=== PATIENT | male | born 1945 | race Caucasian/White ===

== ENCOUNTER 2017-08-23 11:08 | Inpatient (IN) | payer MEDICARE, MEDICAID ==
--- NOTE | 2017-08-23 11:19 | ED Physician Chart ---
ED Chief Complaint/HPI - Patient Information Date Seen:: 08/23/17 Time Seen:: 11:05 Chief Complaint:: Epistaxis History of Present Illness:: onset x 4 days of intermittent epistaxis which resolved upon ER arrival; no report of trauma, H/As, neck pain, S/T, cough, C/P, SOB, Abd/Flank Pain, A/N/V/D /C, fever, chills, or urinary s/s Historian:: Patient, EMS Review:: Nurse's Note Reviewed, EMS run form Reviewed ED Review of Systems - Review of Systems General/Constitutional: No fever, No chills, No weight loss, No weakness, No diaphoresis, No edema, No loss of appetite Skin: No skin lesions, No rash, No bruising Head: No headache, No light-headedness Eyes: No loss of vision, No pain, No diplopia ENT: No earache, No nasal drainage, No sore throat, No tinnitus, Other ( epistaxis) Neck: No neck pain, No swelling, No thyromegaly, No stiffness, No mass noted Cardio Vascular: No chest pain, No palpitations, No PND, No orthopnea, No edema Pulmonary: SOB, Cough, No sputum, Wheezing GI: No nausea, No vomiting, No diarrhea, No pain, No melena, No hematochezia, No constipation, No hematemesis G/U: No dysuria, No frequency, No hematuria Musculoskeletal: No bone or joint pain, No back pain, No muscle pain Endocrine: Polyuria, Polydipsia Psychiatric: No prior psych history, No depression, No anxiety, No suicidal ideation, No homicidal ideation, No auditory hallucination, No visual hallucination Hematopoietic: No bruising, No lymphadenopathy Allergic/Immuno: No urticaria, No angioedema Neurological: No syncope, No focal symptoms, No weakness, No paresthesia, No headache, No seizure, No dizziness, No confusion, No vertigo ED Past Medical History - Past Medical History Obtainable: Yes Past Medical History: HTN, DM, CAD, Asthma/COPD, CVA/TIA, Dyslipidemia, PUD/GERD Family History: Heart disease, Diabetes Melitus, HTN Social History: Non Smoker, No Alcohol, No Drug Use, Single, Care Facility Surgical History: None Psychiatricy History: None Medication: Reviewed Family Medical History - Family Member Mother History Unknown: Yes ED Physical Exam - Physical Examination General/Constitutional: Awake, Well-developed, well-nourished, Alert, No distress, GCS 15, Non-toxic appearing, Ambulatory Head: Atraumatic Eyes: Lids, conjuctiva normal, PERRL, EOMI Skin: Nl inspection, No rash, No skin lesions, No ecchymosis, Well hydrated, No lymphadenopathy ENMT: External ears, nose nl, Nasal exam nl, Lips, teeth, gums nl Neck: Nontender, Full ROM w/o pain, No JVD, No nuchal rigidity, No bruit, No mass, No stridor Respiratory: Nl effort/Exclusion, Clear to Auscultation, No Wheeze/Rhonchi/Rales Cardio Vascular: RRR, No murmur, gallop, rubs, NL S1 S2 GI: No tenderness/rebounding/guarding, No organomegaly, No hernia, Normal BS's, Nondistended, No mass/bruits, No McBurney tenderness : No CVA tenderness Extremities: No tenderness or effusion, Full ROM, normal strength in all extremities, No edema, Normal digits & nails Neuro/Psych: Alert/oriented, DTR's symmetric, Normal sensory exam, Normal motor strength, Judgement/insight normal, Mood normal, Normal gait, No focal deficits Other Neuro/Psych comments:: + 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 Is Septic Shock (SBP<90, OR Lactate>4 mmol\L) present?: No ED Reassessment (Disposition) - Reassessment Reassessment Condition:: Improved - Diagnosis Diagnosis:: Epistaxis; Hyponatremia; Dehydration - Aftercare/Follow up Instructions Aftercare/Follow-Up Instructions:: Counseled pt regarding lab results/diagnosis & need follow up, Counseled pt & family regarding lab results/diagnosis & need follow up - Patient Disposition Discharge/Transfer:: Acute Care w/in this hosp Accepting Physician:: Dr. Olivia Time Called:: 1310 Time Responded:: 13:10 Admitted to:: Telemetry Spoke to:: Dr. Olivia Admitting Medical Physician:: Dr. Olivia Condition at Disposition:: Stable, Improved
[2017-08-23 11:38] LABS: % BASOPHILS 0.3 % (0.0-2.0); % EOSINOPHILS 1.8 % (0.0-5.0); % LYMPHOCYTES 20.4 % (20.0-50.0); % MONOCYTES 5.8 % (2.0-10.0); % NEUTROPHILS 71.7 % (40.0-80.0); HEMATOCRIT 43.5 % (41.0-60); HEMOGLOBIN 14.3 gm/dL (12-16); MEAN CELL VOLUME 86.6 fl (80-99); MEAN CORPUSCULAR HEMOGLOBIN 28.4 pg (27.0-31.0); MEAN CORPUSCULAR HGB CONC 32.8 pg (28.0-36.0); MEAN PLATELET VOLUME 7.3 fl; PLATELET COUNT 239 Th/cmm (150-400); RED BLOOD COUNT 5.03 Mil/cmm (3.80-5.80); RED CELL DISTRIBUTION WIDTH 13.4 % (11.5-20.0); WHITE BLOOD COUNT 8.4 Th/cmm (4.8-10.8)
[2017-08-23 11:50] LABS: INR 1.06 (0.5-1.4)
[2017-08-23 11:55] LABS: ALB/GLOB RATIO 1.2 (1.0-1.8); ALKALINE PHOSPHATASE 90 U/L (34-104); ANION GAP 11.6 (7.0-16.0); BILIRUBIN,TOTAL 0.9 mg/dL (0.3-1.0); BUN - UREA NITROGEN 25 mg/dL (7-25); BUN/CREATININE RATIO 35.7; CALCIUM SERUM 9.1 mg/dL (8.6-10.3); CARBON DIOXIDE 22.7 mEq/L (21.0-31.0); CHLORIDE 99 mEq/L (98-107); CHOLESTEROL 142 mg/dL (<200); CREATININE - SERUM 0.7 mg/dL (0.7-1.3); GLUCOSE 113 mg/dL (70-105); POTASSIUM SERUM 4.3 mEq/L (3.5-5.1); SGOT 12 U/L (13-39); SGPT/ALT 14 U/L (7-52); SODIUM SERUM 129 mEq/L (136-145); TRIGLYCERIDES 120 mg/dL (<150)
--- NOTE | 2017-08-23 11:58 | Diagnostic Imaging Report ---
Portable chest x-ray Time: 1136 hours History: Chest pain Allowing for portable technique the heart size is normal. No focal pulmonary parenchymal processes. No hilar or mediastinal abnormalities. Impression: No acute abnormalities.
[2017-08-23] MEDS ORDERED: CAFFEINE PO PRN (13:52)
[2017-08-23] MEDS ORDERED: ASPIRIN PO PRN (13:52)
[2017-08-23] MEDS ORDERED: [UNRECOGNIZED DRUG - OTHER] PO PRN (13:52)
[2017-08-23] MEDS ORDERED: ACETAMINOPHEN PO PRN (13:52)
[2017-08-23] MEDS ORDERED: Pneumococcal Vaccine 0.5 mL Vial IM ONE (16:35)
[2017-08-23] MEDS ORDERED: VTE Chemical Prophylaxis Screen/Admission MC PRN (17:07)
[2017-08-23] MEDS: Sodium Chloride 0.9% 1,000 ML IV SCH (17:49)
[2017-08-24] MEDS: Sodium Chloride 0.9% 1,000 ML IV SCH ×2 (07:09→22:02)
[2017-08-24] MEDS: Multivitamin w/ Minerals Tab PO SCH (08:57)
[2017-08-24] MEDS ORDERED: MELOXICAM 15 MG PO SCH (09:00)
--- NOTE | 2017-08-24 20:23 | History & Physical ---
ADMIT DATE: 08/23/2017 HISTORY OF PRESENT ILLNESS: The patient has had an episode of epistaxis for 4 days so came to the Emergency Room. No history of trauma. No history of nausea, vomiting, diarrhea, etc. History of present illness is as above. History is obtained from EMS. REVIEW OF SYSTEMS: Otherwise, negative. PAST MEDICAL HISTORY: History of hypertension, history of diabetes, coronary artery disease, history of severe COPD, CVA, dyslipidemia, peptic ulcer disease, GERD, and also has a history of triple aneurysm. PHYSICAL EXAMINATION: GENERAL: The patient is alert, oriented, but not in acute distress. VITAL SIGNS: Stable. HEAD: Normal. ENT: Normal. NECK: Supple, nontender. LUNGS: Clear. CARDIOVASCULAR SYSTEM: S1, S2 heard. ABDOMEN: Soft. NEUROLOGICAL: The patient has paraplegia. LABORATORY DATA: The patient's sodium was 129. DIAGNOSES: 1. Severe epistaxis. 2. Severe hyponatremia. 3. Dehydration. 4. History of hypertension. 5. History of diabetes. 6. History of coronary artery disease. 7. Asthma. 8. Chronic obstructive pulmonary disease. 9. History of CVA. 10. Hyperlipidemia. 11. Peptic ulcer disease. PLAN: The patient is now admitted. I will do ____ workup and also will do a CAT scan of the head. We will give normal saline and repeat his labs, and we will have Dr. Levin see the patient, and I will follow the patient. JOB# [id number]
[2017-08-25 07:14] LABS: ALB/GLOB RATIO 1.3 (1.0-1.8); ALKALINE PHOSPHATASE 78 U/L (34-104); ANION GAP 11.4 (7.0-16.0); BILIRUBIN,TOTAL 0.9 mg/dL (0.3-1.0); BUN - UREA NITROGEN 9 mg/dL (7-25); CALCIUM SERUM 8.4 mg/dL (8.6-10.3); CARBON DIOXIDE 23.3 mEq/L (21.0-31.0); CHLORIDE 103 mEq/L (98-107); CREATININE - SERUM 0.6 mg/dL (0.7-1.3); GLUCOSE 91 mg/dL (70-105); POTASSIUM SERUM 3.7 mEq/L (3.5-5.1); SGOT 14 U/L (13-39); SGPT/ALT 13 U/L (7-52); SODIUM SERUM 134 mEq/L (136-145)
--- NOTE | 2017-08-25 07:59 | Diagnostic Imaging Report ---
Exam: CT examination of brain. HISTORY hemorrhage. Total DLP equals 644 CTDI equals 36.5. Findings: Multiple contiguous thin section of the brain were obtained from the base of skull to the vertex without the administration of contrast material. No prior studies available comparison. The study demonstrates previous left frontotemporal craniotomy craniectomy changes. There is evidence of aneurysmal clipping of the anterior communicating artery on the left side. There is evidence of for prominence of ventricular system most likely demonstrate communication hydrocephalus the nature. Diffuse atrophy and white matter periventricular ischemic changes are noted of all extending etiology. There is evidence of encephalomalacia in the right frontal lobe. There is no evidence for acute hemorrhage midline shift or edema. IMPRESSION: 1. Atrophy. Ischemic white matter changes 2. Status post aneurysmal clipping left anterior communicating artery. 3. Right frontal encephalomalacia 4. Communicated hydrocephalus, correlation prior studies recommended
[2017-08-25] MEDS: Multivitamin w/ Minerals Tab PO SCH (09:45)
--- NOTE | 2017-08-25 11:56 | General Progress Note ---
Subjective - Review of Systems Events since last encounter: patient in no acute distress awake Objective - Results Result Diagrams: 08/23/17 11:30 08/25/17 06:50 Recent Labs: Laboratory Last Values WBC 8.4 Th/cmm (4.8-10.8) 08/23/17 11:30 RBC 5.03 Mil/cmm (3.80-5.80) 08/23/17 11:30 Hgb 14.3 gm/dL (12-16) 08/23/17 11:30 Hct 43.5 % (41.0-60) 08/23/17 11:30 MCV 86.6 fl (80-99) 08/23/17 11:30 MCH 28.4 pg (27.0-31.0) 08/23/17 11:30 MCHC Differential 32.8 pg (28.0-36.0) 08/23/17 11:30 RDW 13.4 % (11.5-20.0) 08/23/17 11:30 Plt Count 239 Th/cmm (150-400) 08/23/17 11:30 MPV 7.3 fl 08/23/17 11:30 Neutrophils % 71.7 % (40.0-80.0) 08/23/17 11:30 Lymphocytes % 20.4 % (20.0-50.0) 08/23/17 11:30 Monocytes % 5.8 % (2.0-10.0) 08/23/17 11:30 Eosinophils % 1.8 % (0.0-5.0) 08/23/17 11:30 Basophils % 0.3 % (0.0-2.0) 08/23/17 11:30 PT 11.0 SECONDS (9.5-11.5) 08/23/17 11:30 INR 1.06 (0.5-1.4) 08/23/17 11:30 Sodium 134 mEq/L (136-145) L 08/25/17 06:50 Potassium 3.7 mEq/L (3.5-5.1) 08/25/17 06:50 Chloride 103 mEq/L (98-107) 08/25/17 06:50 Carbon Dioxide 23.3 mEq/L (21.0-31.0) 08/25/17 06:50 Anion Gap 11.4 (7.0-16.0) 08/25/17 06:50 BUN 9 mg/dL (7-25) 08/25/17 06:50 Creatinine 0.6 mg/dL (0.7-1.3) L 08/25/17 06:50 Est GFR ( Amer) TNP 08/25/17 06:50 Est GFR (Non-Af Amer) TNP 08/25/17 06:50 BUN/Creatinine Ratio 15.0 08/25/17 06:50 Glucose 91 mg/dL (70-105) 08/25/17 06:50 POC Glucose 106 MG/DL (70 - 105) H 08/24/17 11:42 Calcium 8.4 mg/dL (8.6-10.3) L 08/25/17 06:50 Total Bilirubin 0.9 mg/dL (0.3-1.0) 08/25/17 06:50 AST 14 U/L (13-39) 08/25/17 06:50 ALT 13 U/L (7-52) 08/25/17 06:50 Alkaline Phosphatase 78 U/L (34-104) 08/25/17 06:50 Creatine Kinase 108 U/L (30-223) 08/23/17 11:30 Troponin I < 0.01 ng/mL (0.01-0.05) L 08/23/17 11:30 B-Natriuretic Peptide 25.4 pg/mL (5.0-100.0) 08/23/17 11:30 Total Protein 6.5 gm/dL (6.0-8.3) 08/25/17 06:50 Albumin 3.7 gm/dL (4.2-5.5) L 08/25/17 06:50 Globulin 2.8 gm/dL 08/25/17 06:50 Albumin/Globulin Ratio 1.3 (1.0-1.8) 08/25/17 06:50 Triglycerides 120 mg/dL (<150) 08/23/17 11:30 Cholesterol 142 mg/dL (<200) 08/23/17 11:30 LDL Cholesterol Direct 65 mg/dL (75-193) L 08/23/17 11:30 HDL Cholesterol 59 mg/dL (23-92) 08/23/17 11:30 - Physical Exam Vitals and I&O: Vital Signs Temp 97.6 F 08/25/17 11:42 Pulse 79 08/25/17 11:42 Resp 17 08/25/17 11:42 BP 98/48 08/25/17 11:42 Pulse Ox 95 08/25/17 11:42 Intake & Output 08/24/17 08/25/17 08/25/17 18:59 06:59 18:59 Intake Total 1000 360 Output Total 560 Balance 1000 -200 Weight (lbs) 82.554 kg Intake: Intake, IV Amount 1000 Sodium Chloride 0.9% 1, 1000 000 ml @ 100 mls/hr IV . Q10H [facility] Rx#:[id number] Oral 360 Output: Urine 560 Other: # Voids 3 # Bowel Movements 0 Stool Characteristics Soft Soft Liquid Liquid Active Medications: Current Medications Aspirin (Aspirin) 325 mg PO DAILY [facility] Stop: 10/23/17 08:59 Last Admin: 08/25/17 09:45 Dose: 325 mg Benazepril HCl (Lotensin) 10 mg PO DAILY [facility] Stop: 10/23/17 08:59 Last Admin: 08/25/17 09:45 Dose: 10 mg Carvedilol (Coreg) 3.125 mg PO BID [facility] Stop: 10/22/17 16:59 Last Admin: 08/25/17 09:44 Dose: 3.125 mg Glimepiride (Amaryl) 4 mg PO DAILY [facility] Stop: 10/23/17 08:59 Last Admin: 08/25/17 09:45 Dose: 4 mg Heparin Sodium (Porcine) (Heparin) 5,000 units SUBQ Q12HR [facility] Stop: 10/22/17 20:59 Last Admin: 08/24/17 08:58 Dose: 5,000 units Sodium Chloride (Nacl 0.9%) 1,000 mls @ 100 mls/hr IV .Q10H [facility] Stop: 10/22/17 15:59 Last Admin: 08/24/17 22:02 Dose: 100 mls/hr Metformin HCl (Glucophage) 500 mg PO DAILY [facility] Stop: 10/23/17 08:59 Last Admin: 08/25/17 09:46 Dose: 500 mg Miscellaneous (Aspirin/Acetaminophen/Caffeine [Excedrin Migraine Caplet]) 1 each PO Q8H PRN PRN Reason: Headache Miscellaneous (Meloxicam [Mobic]) 15 mg PO DAILY [facility] Stop: 10/23/17 08:59 Miscellaneous ([employer] Prophylaxis Screen/ Admission) 1 ea [facility] PRN PRN PRN Reason: PROTOCOL Stop: 10/22/17 17:06 Montelukast Sodium (Singulair) 10 mg PO DAILY [facility] Stop: 10/23/17 08:59 Last Admin: 08/25/17 09:45 Dose: 10 mg Niacin (Vitamin B3) 1,000 mg PO HS [facility] Stop: 10/22/17 20:59 Last Admin: 08/24/17 22:03 Dose: 1,000 mg Simvastatin (Zocor) 40 mg PO HS [facility] PRN Reason: Protocol Stop: 10/22/17 20:59 Last Admin: 08/24/17 22:03 Dose: 40 mg General: No acute distress HEENT: Atraumatic, PERRLA Neck: Supple Cardiovascular: Regular rate, Normal S1 Lungs: Clear to auscultation Abdomen: Bowel sounds Assessment/Plan - Problem List Patient Problems: All Active Problems Asthma (Acute) J45.909 BILATERAL INTERMITTENT EPISTAXIS (Acute) COPD (chronic obstructive pulmonary disease) (Acute) Dehydration (Acute) E86.0 H/O diabetes mellitus (Acute) Z86.39 H/O: CVA (cerebrovascular accident) (Acute) Z86.73 H/O: HTN (hypertension) (Acute) Z86.79 Hyperlipidemia (Acute) E78.5 Peptic ulcer (Acute) K27.9 Severe epistaxis (Acute) R04.0 Severe hypotension (Acute) h/o cad (Acute) - Plan Plan: as per order sheet
--- NOTE | 2017-08-25 23:03 | Consultation ---
DATE OF CONSULTATION: 08/25/2017 ATTENDING PHYSICIAN: Hank Olivia M.D. EQUIPMENT SERVICES ASSOCIATE: Ashvin Levin M.D. REASON FOR CONSULTATION: Hyponatremia and fluid management. HISTORY OF PRESENT ILLNESS: This is a 72-year-old male with A past medical history of type 2 diabetes mellitus, who came in because of epistaxis. Four days prior to admission, the patient developed intermittent epistaxis. A few hours prior to admission, the bleeding seemed to have persisted and he was then presented to the Emergency Room. However, his epistaxis stopped completely upon arrival at the Emergency Room. His hemoglobin/hematocrit were 14.3/43.5 with platelets of 239. PT/INR were 11/1.06. CT of the head revealed atrophy, with ischemic white matter changes, status post clipping of the left anterior communicating artery and communicating hydrocephalus. Chest x-ray revealed no acute disease, he had no history of fall, trauma. No gum bleeding, no hemarthrosis. His sodium level was 129 upon admission. He was hydrated accordingly and his sodium went up to 134. He had no nausea and vomiting then. PAST MEDICAL HISTORY: 1. Type 2 diabetes mellitus. 2. Essential hypertension. 3. Dyslipidemia. 4. COPD. 5. Degenerative joint disease. 6. GERD. 7. Status post cerebrovascular accident with left hemiparesis. 8. Non-traumatic intracerebral hemorrhage. CURRENT MEDICATIONS: He is currently on aspirin, benazepril, carvedilol, glimepiride, Meloxicam, metformin, montelukast, Singulair, multivitamins, niacin, sodium chloride, and simvastatin. ALLERGIES: ALLERGIC TO PENICILLIN. SOCIAL HISTORY: He has a history of smoking, but quit 15 years ago and drank alcoholic beverages, but quit 10 years ago. 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 Father had a history of diabetes and AL. He has another brother who is older than him, who of an AL. REVIEW OF SYSTEMS: NEUROLOGIC: He has a history of hemiparesis and weakness, especially in the lower extremities and both hands. Appetite has been fair. No fever, no chills. HEENT: No mention of headaches, nor dizziness. Vision has been poor along with hearing acuity. CARDIORESPIRATORY: He has a history of hypertension and COPD. At this point, he does not have any shortness of breath, chest pain, palpitations, diaphoresis, or cough. GASTROINTESTINAL: Denied any nausea and vomiting, abdominal pain or cramping, hematemesis, melena, hematochezia, nor diarrhea. ENDOCRINE: He has a history of diabetes and dyslipidemia, but no hypothyroidism. GENITOURINARY: No history of kidney failure, but came in with some electrolyte abnormalities. MUSCULOSKELETAL: He has multiple joint arthralgias. NEUROPSYCHIATRIC: No syncopal episode or seizure activity. He has a history of CVA, which has caused some hemiparesis involving mostly his left lower extremity, as well as both hands. PHYSICAL EXAMINATION: GENERAL: The patient is alert, vocal, fluent, and not in any distress. VITAL SIGNS: Blood pressure is 98/48, pulse 79, temperature 97.6 degrees. SKIN: Poor turgor, warm. No rash, no jaundice appreciated. HEENT: Head: Normocephalic, atraumatic. Eyes: Extraocular muscles intact. Pupils are equal, round, reactive to light and accommodates. Anicteric sclerae. [place] conjunctivae. Nose: Midline nasal septum. No evidence of any epistaxis. Mouth: Dry mucosa with poor dentition. NECK: Supple, no adenopathy, no thyromegaly, no bruits. Trachea palpated in the midline. CHEST AND CVS: S1, S2. No rub, murmur, no gallop appreciated. Point of maximal impulse, fifth intercostal space, left midclavicular line. No abdominal or femoral bruits appreciated. LUNGS: Equal expansion. No use of accessory muscles. No supraclavicular retractions. Decreased breath sounds, a few rhonchi, but no rales, no wheezes appreciated. ABDOMEN: Obese, soft, positive for bowel sounds. No tenderness, no bruits, either diastolic or systolic. RECTAL: The patient refused. GENITOURINARY: Normal-appearing male genitalia. MUSCULOSKELETAL: No effusions present in his joints with limited range of motion. EXTREMITIES: There is no evidence of any edema; however, he has contractures of both hands, which are quite firm. NEUROLOGIC: The patient is alert and coherent. Motor: Has adequate motor involving the upper extremities, which I would say is 4/5. However, he is not able to move either flexion or extension of his fingers, and also in his lower extremities, his motor on the right is about a 4/5, and on the left lower extremity it is about a 2/5. LABORATORY DATA: Revealed a white count of 8.4, hemoglobin 14.3, hematocrit 43.5. Platelets 239, polys 71.7%. Sodium now is 134, potassium 3.7, chloride 103, bicarb 23, BUN 9, creatinine 0.6, glucose 91, calcium 8.4, and albumin 3.7. IMPRESSION: 1. Hyponatremia. Upon exam, the patient looks hypovolemic. Thus, there is a possibility of increased sodium loss as compared to the free water loss. 2. Epistaxis, which has spontaneously resolved. 3. Type 2 diabetes mellitus. 4. Essential hypertension. 5. Dyslipidemia. 6. Chronic obstructive pulmonary disease. 7. Degenerative joint disease. 8. Gastroesophageal reflux disease. 9. Status post cerebrovascular accident with hemiparesis of the lower extremities and contractures of both hands. 10. Nontraumatic intracranial hemorrhage. PLAN: 1. Continue with IV fluids. 2. Urinalysis. 3. Urine spot sodium. 4. Serum osmolality and uric acid. 5. Follow up electrolytes. Thank you, Dr. Olivia, for this consult. I will follow the patient closely with you. JOB# [id number]
--- NOTE | 2017-08-27 21:12 | Discharge Summary ---
DATE OF DISCHARGE: 08/25/2017 ADMITTING DIAGNOSES: Hyponatremia, hypertension, diabetes, coronary artery disease, history of severe hyperlipidemia, and peptic ulcer disease. The patient was treated for all of that including epistaxis improved, hyponatremia improved. The patient was in stable condition on 08/25/2017 and the patient was sent back to [facility] where his PCP will follow. MEDICATIONS: See reconciliation sheet. CONDITION AT THE TIME OF DISCHARGE: Stable. JOB# [id number]
== END 2017-08-25 22:50 | disposition home or self-care (01) | DRG 641 ==
LOC: ER 11:08 → TELE 13:30
PROVIDERS: ADMIT Internal Medicine; ATTEND Internal Medicine
DX: E87.1 Hypo-osmolality and hyponatremia (principal); E86.0 Dehydration; I69.354 Hemiplegia and hemiparesis following cerebral infarction affecting left non-dominant side; J44.9 Chronic obstructive pulmonary disease, unspecified; R04.0 Epistaxis; K27.9 Peptic ulcer, site unspecified, unspecified as acute or chronic, without hemorrhage or perforation; I10 Essential (primary) hypertension; E11.9 Type 2 diabetes mellitus without complications; I25.10 Atherosclerotic heart disease of native coronary artery without angina pectoris; E78.5 Hyperlipidemia, unspecified; K21.9 Gastro-esophageal reflux disease without esophagitis; Z82.49 Family history of ischemic heart disease and other diseases of the circulatory system; Z83.3 Family history of diabetes mellitus; Z88.0 Allergy status to penicillin; Z87.891 Personal history of nicotine dependence
CPT/HCPCS: 36415-UA; 70450-TC; 71010-TC; 80053-TC; 80061-TC; 82550-TC; 82948-90; 83880-TC; 84484-TC; 85025-TC; 85610-TC; 93005; 94760; J1644; J7030; Z7610